=== PATIENT | male | born 1940 | race Caucasian/White ===

== ENCOUNTER 2018-09-05 11:37 | Emergency (ER) | payer OTHER ==
[2018-09-05 12:30] LABS: Absolute Lymphocytes (CBC) 1.1 K/uL (0.7-4.9); Absolute Monocytes 0.5 K/uL (0.1-1.3); Absolute Neutrophil 2.7 K/uL (1.8-8.0); Basophils % 1.5 % (0-1.3); Eosinophils % 7.7 % (0-4.4); Hematocrit 43.3 % (39.6-49.0); Lymphocytes % 23.4 % (15.3-44.8); MPV 7.6 fL (7.6-11.3); Monocytes % 9.9 % (3.3-12.3); RBC Red Blood Cell Count 4.92 M/uL (4.33-5.43)
[2018-09-05 12:33] LABS: Protime INR 1.02
[2018-09-05 12:52] LABS: Albumin 4.2 g/dL (3.4-5.0); Bilirubin Direct 0.2 mg/dL (0-0.2); Bilirubin Total 0.9 mg/dL (0.2-1.0); Magnesium 2.3 mg/dL (1.8-2.4); Potassium 3.6 mmol/L (3.5-5.1); Protein, Total 7.9 g/dL (6.4-8.2); Troponin (Emerg Dept Use Only) 0.02 ng/mL (0.0-0.045)
--- NOTE | 2018-09-05 12:53 | RAD REPORT ---
EXAM DESCRIPTION: RAD - Chest Single View - 09/05/2018 12:45 pm CLINICAL HISTORY: CHEST PAIN Chest pain. COMPARISON: Chest Single View dated 05/12/2017; Chest Single View dated 05/04/2017; Chest Single View dated 04/21/2017; Chest Single View dated 04/20/2017; Thorax Wo Con dated 04/20/2017 FINDINGS: Portable technique limits examination quality. Mild diffuse COPD is present. The heart is upper limit of normal in size. 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 IMPRESSION: No acute intrathoracic process suspected.
[2018-09-05] MEDS ORDERED: ALPRAZOLAM 1 MG TABLET ONE (13:54)
--- NOTE | 2018-09-05 15:13 | EDPHYS ---
Physician Documentation [facility] Name: Kota Rollins Jr Age: 77 yrs Sex: Male : 1940 Arrival Date: 09/05/2018 Time: 11:41 Bed 23 Private MD: Conor Edwards R ED Physician Alisson Monroy HPI: 09/05 12:26 This 77 yrs old Male presents to ER via Wheelchair with complaints of ma2 Weakness. 12:26 Onset: The symptoms/episode began/occurred gradually, 2 day(s) ago. Context: no ma2 deficit, has generalized weakness . Associated signs and symptoms: Pertinent positives: chest pain, Pertinent negatives: altered mental status, dizziness, headache, nausea, paresthesias, syncope, double vision, visual field changes, weakness. Severity of symptoms: At their worst the symptoms were mild in the emergency department the symptoms are unchanged. Current symptoms: Currently, the patient is not experiencing any symptoms. The patient has experienced similar episodes in the past. Historical: - Allergies: 14:58 Codeine; ls4 14:58 PENICILLINS; ls4 - Home Meds: 14:58 aspirin 81 mg Oral chew [Active]; Clonidine Oral [Active]; ls4 lisinopril-hydrochlorothiazide 20-12.5 mg Oral tab 1 tab once daily [Active]; nitroglycerin 0.4 mg SL subl 1 tab every 5 minutes [Active]; sotalol 80 mg Oral tab 1 tab 2 times per day [Active]; - PMHx: 11:53 Atrial Fib; COPD; Hypertension; Myocardial infarction; sv - PSHx: 11:53 Heart stents; Retinal Detachment; Leg surgery; Carotid surgery; sv - Immunization history:: Adult Immunizations unknown. - Social history:: Patient/guardian denies using alcohol, street drugs, The patient lives with family, Smoking status: unknown. - Family history:: not pertinent. - Ebola Screening: : No symptoms or risks identified at this time. ROS: 12:26 Eyes: Negative for injury, pain, redness, and discharge, ENT: Negative for injury, ma2 pain, and discharge, Cardiovascular: Negative for chest pain, palpitations, and edema, Abdomen/GI: Negative for abdominal pain, nausea, diarrhea, and constipation, Back: Negative for injury and pain, : Negative for injury, bleeding, discharge, and swelling, Psych: Negative for depression, anxiety, suicide ideation, homicidal ideation, and hallucinations, Allergy/Immunology: Negative for hives, rash, and allergies, Endocrine: Negative for neck swelling, polydipsia, polyuria, polyphagia, and marked weight changes. 12:26 Constitutional: Positive for weight loss, weakness, Negative for chills, fatigue, malaise. 12:26 All other systems are negative. Exam: 12:26 Constitutional: This is a well developed, well nourished patient who is awake, alert, ma2 and in no acute distress. Chest/axilla: Normal chest wall appearance and motion. Nontender with no deformity. No lesions are appreciated. Cardiovascular: Regular rate and rhythm with a normal S1 and S2. No gallops, murmurs, or rubs. Normal PMI, no JVD. No pulse deficits. Respiratory: Lungs have equal breath sounds bilaterally, clear to auscultation and percussion. No rales, rhonchi or wheezes noted. No increased work of breathing, no retractions or nasal flaring. Abdomen/GI: Soft, non-tender, with normal bowel sounds. No distension or tympany. No guarding or rebound. No evidence of tenderness throughout. MS/ Extremity: Pulses equal, no cyanosis. Neurovascular intact. Full, normal range of motion. Neuro: Awake and alert, GCS 15, oriented to person, place, time, and situation. Cranial nerves II-XII grossly intact. Motor strength 5/5 in all extremities. Sensory grossly intact. Cerebellar exam normal. Normal gait. Vital Signs: 11:53 BP 172 / 65; Pulse 60; Resp 16; Temp 97.6; Pulse Ox 100% ; Weight 62.6 kg; Height 5 ft. sv 11 in. (180.34 cm); Pain 0/10; 13:14 BP 160 / 59; Pulse 54; Resp 16; Temp 98.0; Pulse Ox 99% on R/A; Pain 0/10; ls4 14:15 BP 123 / 51; Pulse 59; Resp 16; Pulse Ox 100% on R/A; Pain 0/10; ls4 11:53 Body Mass Index 19.25 (62.60 kg, 180.34 cm) sv NIH Stroke Scale Scores: 12:41 NIHSS Score: 0 ls4 MDM: 12:08 Patient medically screened. ma2 12:26 Data reviewed: vital signs, nurses notes, EMS record, correction records, lab test [facility] result(s). 15:11 Data interpreted: court recording monitor:. Counseling: I had a detailed discussion with the [facility] patient and/or guardian regarding: the historical points, exam findings, and any diagnostic results supporting the discharge/admit diagnosis, the presence of at least one elevated blood pressure reading (>120/80) during this emergency department visit, lab results. Response to treatment: There is no appreciated change of the patient's symptoms at this time. ED course: i recommend admission patient wants to leave [facility] so i offered to run another trop at 3 hrs which came back normal, his chest pain was 12 hrs ago 1 episode no chest pain in the last 6 hrs.. he will call ems if any chest pain or any new symptoms.. eitherway will see his pcp tomorrow . 09/05 12:14 Order name: Basic Metabolic Panel; Complete Time: 13:28 [facility] 09/05 12:14 Order name: CBC with Diff [facility] 09/05 12:14 Order name: LFT's; Complete Time: 13:28 [facility] 09/05 12:14 Order name: Magnesium; Complete Time: 13:28 [facility] 09/05 12:14 Order name: NT PRO-BNP; Complete Time: 13:28 [facility] 09/05 12:14 Order name: PT-INR [facility] 09/05 12:14 Order name: Troponin (emerg Dept Use Only); Complete Time: 13:28 [facility] 09/05 12:14 Order name: XRAY Chest (1 view) [facility] 09/05 12:14 Order name: EKG; Complete Time: 12:15 [facility] 09/05 12:14 Order name: Cardiac monitoring; Complete Time: 12:15 [facility] 09/05 12:34 Order name: CBC with Automated Diff; Complete Time: 12:53 [facility]MS 09/05 12:34 Order name: Protime (+INR); Complete Time: 12:53 [facility] 09/05 13:54 Order name: Troponin I: re-draw please for trop repeat; Complete Time: 15:10 [facility] 09/05 14:18 Order name: Urine Dipstick--Ancillary (enter results) 09/05 12:14 Order name: EKG - Nurse/Tech; Complete Time: 12:32 [facility] 09/05 12:14 Order name: IV Saline Lock; Complete Time: 12:15 [facility] 09/05 12:14 Order name: Labs collected and sent; Complete Time: 12:15 dc2 09/05 12:14 Order name: O2 Per Protocol; Complete Time: 12:15 dc2 09/05 12:14 Order name: O2 Sat Monitoring; Complete Time: 12:15 [facility] 09/05 12:25 Order name: Urine Dipstick-Ancillary (obtain specimen); Complete Time: 13:56 ma2 Administered Medications: No medications were administered Point of Care Testin:14 see labs ls4 Ranges: Critical Glucose Levels:Adult <50 mg/dl or >400 mg/dl <40 mg/dl or >180 mg/dl Disposition: 09/05/18 15:13 Discharged to Home. Impression: Weakness. - Condition is Stable. - Discharge Instructions: Weakness. - Medication Reconciliation Form, Thank You Letter, Antibiotic Education, Prescription Opioid Use form. - Follow up: Private Physician; When: Tomorrow; Reason: Continuance of care. NIH Stroke Scale - NIH Stroke Score Date: 09/05/2018 Time: 12:41 Total Score = 0 1a. Level of Consciousness (LOC) - 0(Alert) 1b. Level of Consciousness (LOC) (Year \T\ Age) - 0(Both) 1c. LOC Commands (Open \T\ Closes Eyes/Weft Straightener) - 0(Both) 2. Best Gaze (Lateral Gaze Paresis) - 0(Normal) 3. Visual Field Loss - 0(No visual loss) 4. Facial Palsy - 0(Normal) 5a. Left Arm: Motor (10-second hold) - 0(No drift) 5b. Right Arm: Motor (10-second hold) - 0(No drift) 6a. Left Leg: Motor (5-second hold - always test supine) - 0(No drift) 6b. Right Leg: Motor (5-second hold - always test supine) - 0(No drift) 7. Limb Ataxia (finger/nose \T\ heel/strickland - test with eyes open) - 0(Absent) 8. Sensory Loss (pinprick arms/legs/face) - 0(Normal) 9. Best Language: Aphasia (description/naming/reading) - 0(No aphasia) 10. Dysarthria (speech clarity - read or repeat words) - 0(Normal) 11. Extinction and Inattention (visual/tactile/auditory/spatial/personal) - 0(No abnormality) Initials: ls4 Signatures: Dispatcher [employer] Shirley Harris, RN RN Alisson Monroy MD MD ma2 Bing Irene RN RN ls4 Corrections: (The following items were deleted from the chart) 14:58 11:53 Allergies: Codeine; ls4 14:58 11:53 Allergies: PENICILLINS; ls4 16:10 15:13 09/05/2018 15:13 Discharged to Home. Impression: Weakness. Condition is ls4 Stable. Forms are Medication Reconciliation Form, Thank You Letter, Antibiotic Education, Prescription Opioid Use. Follow up: Private Physician; When: Tomorrow; Reason: Continuance of care. ma2
--- NOTE | 2018-09-05 15:13 | ER ---
Nurse's Notes [facility] Name: Kota Rollins Jr Age: 77 yrs Sex: Male : 1940 Arrival Date: 09/05/2018 Time: 11:41 Bed 23 Private MD: Conor Edwards R Diagnosis: Weakness Presentation: 09/05 11:51 Presenting complaint: Patient states: chest pain last night and took a Nitro, weakness sv for about a year, hematuria for a couple of month. Transition of care: patient was not received from another setting of care. Onset of symptoms is unknown. 11:51 Method Of Arrival: Wheelchair sv 11:51 Acuity: KELLY 3 sv 12:02 No acute neurological deficit is noted. ls4 14:52 Risk Assessment: Do you want to hurt yourself or someone else? Patient reports no ls4 desire to harm self or others. Initial Sepsis Screen: Does the patient meet any 2 criteria? No. Patient's initial sepsis screen is negative. Does the patient have a suspected source of infection? No. Patient's initial sepsis screen is negative. Care prior to arrival: None. Triage Assessment: 12:10 The onset of the patients symptoms was more than six hours ago. ls4 12:10 General: Appears in no apparent distress. Behavior is calm, cooperative. Neuro: No ls4 deficits noted. Cardiovascular: No deficits noted. Respiratory: No deficits noted. GI: No deficits noted. : No deficits noted. Derm: No deficits noted. Musculoskeletal: No deficits noted. Historical: - Allergies: 14:58 Codeine; ls4 14:58 PENICILLINS; ls4 - Home Meds: 14:58 aspirin 81 mg Oral chew [Active]; Clonidine Oral [Active]; ls4 lisinopril-hydrochlorothiazide 20-12.5 mg Oral tab 1 tab once daily [Active]; nitroglycerin 0.4 mg SL subl 1 tab every 5 minutes [Active]; sotalol 80 mg Oral tab 1 tab 2 times per day [Active]; - PMHx: 11:53 Atrial Fib; COPD; Hypertension; Myocardial infarction; sv - PSHx: 11:53 Heart stents; Retinal Detachment; Leg surgery; Carotid surgery; sv - Immunization history:: Adult Immunizations unknown. - Social history:: Patient/guardian denies using alcohol, street drugs, The patient lives with family, Smoking status: unknown. - Family history:: not pertinent. - Ebola Screening: : No symptoms or risks identified at this time. Screenin:34 Abuse screen: Denies threats or abuse. Denies injuries from another. Nutritional ls4 screening: No deficits noted. Tuberculosis screening: No symptoms or risk factors identified. Fall Risk None identified. Assessment: 12:41 The patient has not been NPO before screening. The patient is alert, and able to follow ls4 commands. The patient does not exhibit slurred or garbled speech. The patient is not exhibiting difficulty speaking. The patient does not exhibit difficulty understanding words. The patient is able to swallow own secretions with no drooling or need for suction. Patient tolerated one teaspoon of water. No drooling, immediate coughing, gurgling, or clearing of the throat was noted. The patient tolerated 90mL of water. No drooling, immediate coughing, gurgling, or clearing of the throat was noted. The patient passed the bedside swallow screening. Oral medications may be given as ordered. Contact Physician for further diet orders. Provider notified of bedside swallow screening results: Alisson Monroy MD. T-PA (Activase) Screening: Indications: Contraindications: Rapidly improving condition or minor deficit: Yes. Pain: Denies pain. Neuro: Level of Consciousness is awake, alert, obeys commands, Oriented to person, place, time, situation, Credit Reporter are equal bilaterally Moves all extremities. Gait is unsteady, Speech is normal, Facial symmetry appears normal, Pupils are PERRLA, Intact. Cardiovascular: No deficits noted. Respiratory: Reports cough that is non-productive, dry, Airway is patent Respiratory effort is even, unlabored, Respiratory pattern is regular, Breath sounds are clear bilaterally. the patient has mild shortness of breath Denies shortness of breath at rest, on exertion. : Reports urinary frequency, since one year. Musculoskeletal: Circulation, motion, and sensation intact. Capillary refill < 3 seconds, Range of motion: intact in all extremities. 13:14 Reassessment: Patient and/or family updated on plan of care and expected duration. Pain ls4 level reassessed. Patient is alert, oriented x 3, equal unlabored respirations, skin warm/dry/pink. Vital Signs: 11:53 BP 172 / 65; Pulse 60; Resp 16; Temp 97.6; Pulse Ox 100% ; Weight 62.6 kg; Height 5 ft. sv 11 in. (180.34 cm); Pain 0/10; 13:14 BP 160 / 59; Pulse 54; Resp 16; Temp 98.0; Pulse Ox 99% on R/A; Pain 0/10; ls4 14:15 BP 123 / 51; Pulse 59; Resp 16; Pulse Ox 100% on R/A; Pain 0/10; ls4 11:53 Body Mass Index 19.25 (62.60 kg, 180.34 cm) sv NIH Stroke Scale Scores: 12:41 NIHSS Score: 0 ls4 ED Course: 11:41 Patient arrived in ED. sb2 11:41 Conor Edwards MD is Private Physician. sb2 11:53 Triage completed. sv 11:54 Arm band placed on. sv 11:55 Bing Irene, ANI is Primary Nurse. ls4 12:00 Patient has correct armband on for positive identification. Allergy band placed. Placed ls4 in gown. Bed in low position. Call light in reach. Side rails up X 1. Adult w/ patient. Valuables Given to family. equipment monitor phototypesetting on. Pulse ox on. NIBP on. 12:00 Warm blanket given. Verbal reassurance given. ls4 12:00 No provider procedures requiring assistance completed. Inserted saline lock: 20 gauge ls4 in right antecubital area, using aseptic technique. Blood collected. Patient maintains SpO2 saturation greater than 95% on room air. 12:07 Alisson Monroy MD is Attending Physician. ma2 12:32 Basic Metabolic Panel Sent. ls4 12:32 CBC with Diff Sent. ls4 12:32 LFT's Sent. ls4 12:32 Magnesium Sent. ls4 12:32 NT PRO-BNP Sent. ls4 12:32 PT-INR Sent. ls4 12:32 Troponin (emerg Dept Use Only) Sent. ls4 12:35 EKG done, by technology analyst. reviewed by Alisson Monroy MD. sm3 12:49 XRAY Chest (1 view) In Process Unspecified. EDMS 12:55 XRAY Chest (1 view) In Process Unspecified. EDMS Administered Medications: No medications were administered Point of Care Testin:14 see labs ls4 Ranges: Outcome: 14:52 Condition: stable ls4 15:13 Discharge ordered by . sebas 16:10 Patient left the ED. ls4 NIH Stroke Scale - NIH Stroke Score Date: 09/05/2018 Time: 12:41 Total Score = 0 1a. Level of Consciousness (LOC) - 0(Alert) 1b. Level of Consciousness (LOC) (Year \T\ Age) - 0(Both) 1c. LOC Commands (Open \T\ Closes Eyes/Emergency Vehicle Operator) - 0(Both) 2. Best Gaze (Lateral Gaze Paresis) - 0(Normal) 3. Visual Field Loss - 0(No visual loss) 4. Facial Palsy - 0(Normal) 5a. Left Arm: Motor (10-second hold) - 0(No drift) 5b. Right Arm: Motor (10-second hold) - 0(No drift) 6a. Left Leg: Motor (5-second hold - always test supine) - 0(No drift) 6b. Right Leg: Motor (5-second hold - always test supine) - 0(No drift) 7. Limb Ataxia (finger/nose \T\ heel/strickland - test with eyes open) - 0(Absent) 8. Sensory Loss (pinprick arms/legs/face) - 0(Normal) 9. Best Language: Aphasia (description/naming/reading) - 0(No aphasia) 10. Dysarthria (speech clarity - read or repeat words) - 0(Normal) 11. Extinction and Inattention (visual/tactile/auditory/spatial/personal) - 0(No abnormality) Initials: ls4 Signatures: Dispatcher [employer] Shirley Harris, RN RN Alisson Monroy MD MD ma2 Lesli Hernández2 Gwen Heath 3 Bing Irene RN RN ls4 Corrections: (The following items were deleted from the chart) 14:58 11:53 Allergies: Codeine; ls4 14:58 11:53 Allergies: PENICILLINS; sv ls4
[2018-09-05 15:38] LABS: Urine Blood TRACE (NEG); Urine Glucose NEGATIVE (NEG); Urine Protein NEGATIVE (NEG); Urine pH 7.5 (5.0-7.0)
[2018-09-05 16:17] VITALS: TEMP 98
[2018-09-05 16:19] VITALS: BP 123/51; O2SAT 100
--- NOTE | 2018-09-05 17:10 | EKG ---
Test Date: 2018-09-05 Test Time: 12:25:31 Winch Runner: JAYLA MEASUREMENT RESULTS: Intervals: Rate: 53 PA: 182 QRSD: 92 QT: 474 QTc: 444 Echo: P: 94 PA: 182 QRS: 75 T: 72 INTERPRETIVE STATEMENTS: Sinus bradycardia Otherwise normal ECG Compared to ECG 05/12/2017 19:56:04 Sinus arrhythmia no longer present T-wave abnormality no longer present Prolonged QT interval no longer present Electronically Signed On 09-05-18 17:08:14 FEED MILLER by Reed Alexander
== END 2018-09-05 16:10 | disposition home or self-care (01) ==
LOC: ER 11:37
DX: R53.1 Weakness (principal); I10 Essential (primary) hypertension; J44.9 Chronic obstructive pulmonary disease, unspecified; I48.91 Unspecified atrial fibrillation; I25.2 Old myocardial infarction; Z88.6 Allergy status to analgesic agent; Z88.0 Allergy status to penicillin
CPT/HCPCS: 36415; 71045; 80048; 80076; 81003; 83735; 83880; 84484; 85025; 85610; 93005